=== PATIENT | male | born 1975 | race Caucasian/White ===

== ENCOUNTER 2023-04-28 00:13 | Emergency (ER) | payer SELFPAY ==
[~2023-04-28] VITALS: Ht 167.6 cm; Wt 86.0 kg
[2023-04-28 00:20] VITALS: O2SAT 97
[2023-04-28] MEDS ORDERED: KETOROLAC 30MG/ML VIAL IM ONE (01:30)
[2023-04-28] MEDS ORDERED: LIDOCAINE 5% PATCH TOP SCH (01:30)
[2023-04-28] MEDS ORDERED: CYCLOBENZAPRINE 10MG TABLET PO ONE (01:30)
[2023-04-28] MEDS ORDERED: CYCL5TAB MT (01:32)
[2023-04-28] MEDS ORDERED: LIDO700A15 TP (01:32)
[2023-04-28] MEDS ORDERED: KETOROLAC 30MG/ML VIAL IM NR (01:45)
[2023-04-28] MEDS ORDERED: CYCLOBENZAPRINE 10MG TABLET PO NR (01:45)
[2023-04-28 01:52] VITALS: BP 147/88
[2023-04-28 01:54] VITALS: PULSE 67; RESP 16; TEMP 97.8
== END 2023-04-28 01:54 | disposition home or self-care (01) ==
LOC: ER 00:13
DX: M54.2 Cervicalgia (principal); M54.9 Dorsalgia, unspecified
CPT/HCPCS: 99283; 96372; J1885